=== PATIENT | female | born 2000 | race Caucasian/White ===

== ENCOUNTER 2022-06-17 07:34 | Inpatient (IN) | payer OTHER ==
[2022-06-17] MEDS ORDERED: LIDOCAINE 0.5% (PF) 5 MG/ML (50 ML SDV) SQ PRN (08:01)
[2022-06-17] MEDS ORDERED: TERBUTALINE 1 MG/ML VIAL SQ PRN (08:01)
[2022-06-17] MEDS ORDERED: METHYLERGONOVINE 0.2 MG/ML 1 ML AMP IM PRN (08:01)
[2022-06-17] MEDS ORDERED: OXYTOCIN 10 UNIT/ML 1 ML VIAL IM PRN (08:01)
[2022-06-17] MEDS ORDERED: CARBOPROST TROMETHAMINE 250 MCG/ML 1 ML AMP IM PRN (08:01)
[2022-06-17] MEDS ORDERED: BUTORPHANOL 1 MG/ML 1 ML VIAL IV PRN (08:04)
[2022-06-17] MEDS ORDERED: OXYTOCIN 30 UNITS/500 ML NS 30 UNIT in SALINE 1 500ML.BAG IV SCH (08:15)
--- NOTE | 2022-06-17 08:18 | P.HPOB ---
History of Present Illness H&P Date: 06/17/22 Chief Complaint: Spontaneous rupture of membranes 22-year-old presents at 38 weeks and 1 day with spontaneous rupture membranes around 7 AM today. Her cervix is 1 cm dilated 70% effaced, -2 station. She is dane every 2-5 minutes. heart tones are 135 with moderate variability and reactive. Review of Systems All systems: negative Constitutional: Denies chills, Denies fever Eyes: denies blurred vision, denies pain Ears, nose, mouth and throat: Denies headache, Denies sore throat Cardiovascular: Denies chest pain, Denies shortness of breath Respiratory: Denies cough Gastrointestinal: Denies abdominal pain, Denies diarrhea, Denies nausea, Denies vomiting Genitourinary: Denies dysuria, Denies hematuria Musculoskeletal: Denies myalgias Integumentary: Denies pruritus, Denies rash Neurological: Denies numbness, Denies weakness Psychiatric: Denies anxiety, Denies depression Endocrine: Denies fatigue, Denies weight change Past Medical History Past Medical History: No Reported History Past Surgical History: No Surgical Hx Reported Past Anesthesia/Blood Transfusion Reactions: No Reported Reaction Past Psychological History: No Psychological Hx Reported Past Alcohol Use History: None Reported Past Drug Use History: None Reported Medications and Allergies Home Medications Medication Instructions Recorded Confirmed Type Vit No.179/Iron/Folic 1 tab PO DAILY 06/17/22 06/17/22 History [ Tablet] Allergies Allergy/AdvReac Type Severity Reaction Status Date / Time No Known Allergies Allergy Verified 06/17/22 07:57 Exam Osteopathic Statement: *. No significant issues noted on an osteopathic structural exam other than those noted in the History and Physical/Consult. Intake and Output 06/16/22 06/17/22 06/17/22 22:59 06:59 14:59 Other: Weight 78.925 kg Heart: Regular rate and rhythm Lungs: Clear to auscultation bilaterally Abdomen: Soft, nontender Extremities: Negative Homans sign Assessment and Plan (1) Spontaneous rupture of membranes Current Visit: Yes Status: Acute Code(s): CAR3927 - SNOMED Code(s): 170168743 (2) 38 weeks gestation of Current Visit: Yes Status: Acute Code(s): Z3A.38 - 38 WEEKS GESTATION OF SNOMED Code(s): 92650440 Plan: 1. Admit to family place 2. Expectant management 3. Anticipate normal vaginal delivery
[2022-06-17] MEDS: LACTATED RINGERS 1,000 ML IV SCH ×3 (08:30→17:08)
[2022-06-17 09:20] LABS: Basophils % (A) 0 %; Eosinophils # (A) 0.1 k/uL (0-0.7); Eosinophils % (A) 1 %; HCT 36.6 % (34.0-46.0); HGB 11.7 gm/dL (11.4-16.0); Hypochromasia Moderate; Lymphocytes # (A) 1.8 k/uL (1.0-4.8); Lymphocytes % (A) 22 %; MCH 25.9 pg (25.0-35.0); MCHC 32.1 g/dL (31.0-37.0); MCV 80.6 fL (80.0-100.0); Mean Platelet Volume 10.6; Monocytes # (A) 0.4 k/uL (0-1.0); Monocytes % (A) 5 %; Neutrophils # (A) 5.9 k/uL (1.3-7.7); Neutrophils % (A) 70 %; Platelet Count 162 k/uL (150-450); RBC 4.54 m/uL (3.80-5.40); RDW 14.5 % (11.5-15.5); WBC 8.4 k/uL (4.0-11.0)
[2022-06-17] MEDS ORDERED: ROPIVACAINE 100 MG, fentaNYL (PF). 200 MCG in SODIUM CHLORIDE 0.9% 76 ML EPIDURAL ONE (17:40)
--- NOTE | 2022-06-17 19:24 | P.PROBDLV ---
Vaginal Delivery Note - . Vaginal Delivery Note: The patient progressed to complete dilation after oxytocin augmentation of labor and epidural anesthesia. Once reaching complete, she began pushing. She pushed for approximately 1 hour and head came to a crown. With one further push, the 's head delivered across the perineum. She was encouraged to continue pushing and the anterior shoulder did deliver. Nuchal cord times one was noted. Nose and mouth were bulb suctioned. With one remaining push, the remainder the easily delivered with the nuchal cord times one reduced around the body with delivery. was placed on mother's abdomen and nose and mouth were bulb suctioned. Cord was clamped and cut and was taken to warmer for evaluation. A viable female infant is noted with scores of 9 at 1 minute and 9 at 5 minutes and infant weight of 6 pounds 13.5 ounces. Placenta delivered shortly thereafter, intact, with a three-vessel cord. Uterus contracted fairly well after oxytocin was given and uterine massage was carried out. Inspection of the perineum revealed no perineal lacerations. Estimated blood loss is approximately 100 mL's. Both mother and infant are in stable condition.
[2022-06-17] MEDS ORDERED: diphenhydrAMINE 25 MG CAP PO PRN (19:51)
[2022-06-17] MEDS ORDERED: BENZOCAINE/MENTHOL SPRAY 1 GM/SPRAY AEROSOL TOPICAL PRN (19:51)
[2022-06-17] MEDS ORDERED: IBUPROFEN 600 MG TAB PO PRN (19:51)
[2022-06-17] MEDS ORDERED: HYDROCORTISONE 2.5% RECTAL CREAM 30 GM TUBE RECTAL PRN (19:51)
[2022-06-17] MEDS ORDERED: ACETAMINOPHEN TAB 325 MG TAB PO PRN (19:51)
[2022-06-17] MEDS ORDERED: LANOLIN CREAM 5 GM TUBE TOPICAL PRN (19:51)
[2022-06-17] MEDS ORDERED: ZOLPIDEM 5 MG TAB PO PRN (19:51)
[2022-06-17] MEDS ORDERED: diphenhydrAMINE 50 MG CAP PO PRN (19:51)
[2022-06-17] MEDS ORDERED: SIMETHICONE 80 MG CHEWABLE PO PRN (19:51)
[2022-06-17] MEDS: SENNOSIDES-DOCUSATE SODIUM 1 EACH TAB PO SCH (23:38)
[2022-06-18 07:30] LABS: Basophils % (A) 0 %; Eosinophils % (A) 0 %; HCT 32.6 % (34.0-46.0); HGB 10.3 gm/dL (11.4-16.0); Hypochromasia Slight; Lymphocytes # (A) 1.8 k/uL (1.0-4.8); Lymphocytes % (A) 15 %; MCH 25.2 pg (25.0-35.0); MCHC 31.7 g/dL (31.0-37.0); MCV 79.6 fL (80.0-100.0); Mean Platelet Volume 10.8; Monocytes # (A) 0.8 k/uL (0-1.0); Monocytes % (A) 6 %; Neutrophils # (A) 9.4 k/uL (1.3-7.7); Neutrophils % (A) 77 %; Platelet Count 148 k/uL (150-450); RBC 4.09 m/uL (3.80-5.40); RDW 14.5 % (11.5-15.5); WBC 12.2 k/uL (4.0-11.0)
[2022-06-18] MEDS: SENNOSIDES-DOCUSATE SODIUM 1 EACH TAB PO SCH (08:19)
--- NOTE | 2022-06-18 08:24 | P.DS ---
Providers Date of admission: 06/17/22 07:56 Expected date of discharge: 06/18/22 Attending physician: Felicia Spencer Primary care physician: Stated None - Discharge Diagnosis(es) (1) Spontaneous rupture of membranes Current Visit: Yes Status: Resolved (2) 38 weeks gestation of Current Visit: Yes Status: Resolved (3) Normal vaginal delivery Current Visit: Yes Status: Acute Hospital Course: Patient presented with spontaneous rupture membranes. She had Pitocin augmentation and an epidural. She underwent a normal vaginal delivery. course was uncomplicated. She denies nausea, vomiting, chest pain, shortness of breath or any calf pain. Patient would be discharged home day #1 in stable condition to follow-up with me in 6 weeks. Plan - Discharge Summary New Discharge Prescriptions: New Ibuprofen [Motrin] 600 mg PO Q6HR PRN #30 tab PRN Reason: Mild Pain (Scale 1 To 3) No Action Vit No.179/Iron/Folic [ Tablet] 1 tab PO DAILY Discharge Medication List Vit No.179/Iron/Folic [ Tablet] 1 tab PO DAILY 06/17/22 [History] Ibuprofen [Motrin] 600 mg PO Q6HR PRN #30 tab 06/18/22 [Rx] Follow up Appointment(s)/Referral(s): Felicia Spencer DO [Doctor of Osteopathic Medicine] - 07/28/22 11:15 am Discharge Disposition: HOME SELF-CARE
[2022-06-18 08:27] VITALS: RESP 16; TEMP 98.3
--- NOTE | 2022-06-18 13:07 | P.MSEPDOC ---
Presenting Problems - Arrival Data Date of Arrival on Unit: 06/17/22 Time of Arrival on Unit: 08:06 Mode of Transport: Ambulatory - Complaint OB-Reason for Admission/Chief Complaint: Rule Out SROM Medical History - Information : 1 Para: 0 Term: 0 : 0 Abortions: Spontaneous or Elective: 0 Number of Living Children: 0 - Gestational Age Gestational Age by KAREEN (wks/days): 38 Weeks and 1 Days Review of Systems - Review of Systems Constitutional: No problems Breast: No problems ENT: No problems Cardiovascular: No problems Respiratory: No problems Gastrointestinal: No problems Genitourinary: No problems Musculoskeletal: No problems Neurological: No problems Skin: No problems Vital Signs - Temperature Temperature: 98.3 F Temperature Source: Oral - Pulse Right Sitting Pulse Rate: 85 Pulse Assessment Method: Automatic Cuff - Respirations Respiratory Rate: 16 Oxygen Delivery Method: Room Air - Blood Pressure Right Arm Blood Pressure: 105/76 Blood Pressure Mean: 85 Blood Pressure Source: Automatic Cuff Medical Screen Scoring - Cervical Exam Dilation (cm): 1 Effacement (%): 70 Station: -2 Membranes: Ruptured - Uterine Contractions Frequency From (mins): 2 Frequency To (mins): 4 Duration From (seconds): 40 Duration To (seconds): 60 Intensity: Mild Resting: Soft to palpation - Assessment - Baby A Baseline FHR: 125 Heart Rate - NICHD Category: Category I (Normal) NST: Reactive Physician Notification - Physician Notified Physician Notified Date: 06/17/22 Physician Notified Time: 08:06 Physician: Felicia Spencer Order Received: Yes (admit) Maternal Triage Index - Non-Urgent/Priority 4 Non-Urgent Priority 4: Yes Criteria Met for Priority 4: positive amnisure, dilated 1cm/70%, reactive nst Disposition - Disposition OB Disposition: Admit, LDRP Suite I agree with the RN Medical Screening Exam: Yes Case reviewed; plan agreed upon as documented in EMR&OBIX.: Yes Diagnosis: ENCOUNTER FOR FULL-TERM UNCOMPLICATED DELIVERY
[2022-06-18 16:46] VITALS: BP 115/70; PULSE 92
== END 2022-06-18 20:35 | disposition home or self-care (01) | DRG 807 ==
LOC: FBPOP 07:34 → 4FBP 07:56
PROVIDERS: ADMIT Obstetrics & Gynecology; ATTEND Obstetrics & Gynecology
PROC: 10E0XZZ Delivery of Products of Conception, External Approach (ICD-10-PCS; principal; 2022-06-17)
PROC: 4A0HXCZ Measurement of Products of Conception, Cardiac Rate, External Approach (ICD-10-PCS; 2022-06-17)
PROC: 3E033VJ Introduction of Other Hormone into Peripheral Vein, Percutaneous Approach (ICD-10-PCS; 2022-06-17)
DX: O42.92 Full-term premature rupture of membranes, unspecified as to length of time between rupture and onset of labor (principal); O69.81X0 Labor and delivery complicated by cord around neck, without compression, not applicable or unspecified; Z37.0 Single live birth; Z3A.38 38 weeks gestation of pregnancy
CPT/HCPCS: 59025; 84112; 85025; 86850; 86900; 86901; 99213

== ENCOUNTER 2023-05-06 18:17 | Emergency (ER) | payer OTHER ==
--- NOTE | 2023-05-06 19:41 | ED ---
Chest Pain HPI - General Source: patient Mode of arrival: ambulatory Limitations: no limitations <Jared Sky - Last Filed: 05/06/23 19:41> <Jennifer Darling - Last Filed: 05/07/23 00:41> - General Chief Complaint: Chest Pain Stated Complaint: Referred here,Dizziness,Tachycradia,Dyspena - History of Present Illness Initial Comments: 23-year-old female presenting to the ED with chief complaint chest pain. Patient states yesterday while at work started to experience pain of her left upper abdomen. Today started to experience pain and tightness around her chest and feels like her heart is pounding fast. Denies shortness of breath (Jared Sky) 23-year-old female presenting with chief complaint of upper abdominal pain which radiates into the chest. Patient states that she had an episode of chest pain yesterday, pain was mainly in the right upper quadrant. Today she had diffuse upper abdominal pain which radiated into the chest. She states that for a brief moment she felt like her heart was racing and she had some difficulty breathing. This has since completely resolved and the patient is currently asymptomatic. She admits to low-grade fever which started yesterday. No vomiting, diarrhea, hematochezia, melena, lower extremity swelling, recent surgery or travel (Jennifer Darling) - Related Data Home Medications Medication Instructions Recorded Confirmed No Known Home Medications 05/06/23 05/06/23 Allergies Allergy/AdvReac Type Severity Reaction Status Date / Time No Known Allergies Allergy Verified 05/06/23 22:34 Review of Systems ROS Other: All systems not noted in ROS Statement are negative. <Jared Sky - Last Filed: 05/06/23 19:41> ROS Other: All systems not noted in ROS Statement are negative. <Jennifer Darling - Last Filed: 05/07/23 00:41> ROS Statement: Those systems with pertinent positive or pertinent negative responses have been documented in the HPI. EKG Findings - EKG Comments: EKG Findings:: Sinus tachycardia ventricular rate 105. MA interval 126. QRS 86. QT 311. QTC 372. No ST deviation. Left axis deviation. <Jennifer Darling - Last Filed: 05/07/23 00:41> Past Medical History Past Medical History: No Reported History History of Any Multi-Drug Resistant Organisms: None Reported Past Surgical History: No Surgical Hx Reported Past Anesthesia/Blood Transfusion Reactions: No Reported Reaction Past Psychological History: No Psychological Hx Reported Smoking Status: Former smoker Past Alcohol Use History: None Reported Past Drug Use History: None Reported - Past Family History Mother Family Medical History: Diabetes Mellitus, Thyroid Disorder Father Additional Family Medical History / Comment(s): multiple sclerosis <Jared Sky - Last Filed: 05/06/23 19:41> General Exam Limitations: no limitations General appearance: alert, in no apparent distress Respiratory exam: Present: normal lung sounds bilaterally Cardiovascular Exam: Present: normal rhythm, tachycardia Neurological exam: Present: alert, oriented X3 <Tyree Skyua - Last Filed: 05/06/23 19:41> Limitations: no limitations General appearance: alert, in no apparent distress Head exam: Present: atraumatic, normocephalic, normal inspection Eye exam: Present: normal appearance Neck exam: Present: normal inspection, full ROM Respiratory exam: Present: normal lung sounds bilaterally. Absent: respiratory distress, wheezes, rales, rhonchi, stridor Cardiovascular Exam: Present: regular rate, normal rhythm, normal heart sounds. Absent: systolic murmur, diastolic murmur, rubs, gallop, clicks GI/Abdominal exam: Present: soft. Absent: distended, tenderness, guarding, rebound, rigid Neurological exam: Present: alert, oriented X3, CN II-XII intact Psychiatric exam: Present: normal affect, normal mood Skin exam: Present: warm, dry, intact, normal color. Absent: rash <Jennifer Darling - Last Filed: 05/07/23 00:41> Course Vital Signs 05/06/23 05/06/23 19:24 23:23 Temperature 100.4 F H 98.9 F Pulse Rate 122 H 101 H Respiratory 20 18 Rate Blood Pressure 108/68 117/83 O2 Sat by Pulse 98 97 Oximetry Chest Pain MDM <Jennifer Darling - Last Filed: 05/07/23 00:41> - MDM Was pt. sent in by a medical professional or institution (, PA, MOVEMAN, urgent care, hospital, or halfway...) When possible be specific @ -No Did you speak to anyone other than the patient for history (EMS, parent, family, police, friend...)? What history was obtained from this source @ -No Did you review nursing and triage notes (agree or disagree)? Why? @ -I reviewed and agree with nursing and triage notes Were old charts reviewed (outside hosp., previous admission, EMS record, old EKG, old radiological studies, urgent care reports/EKG's, halfway records)? Report findings @ -No old charts were reviewed Differential Diagnosis (chest pain, altered mental status, abdominal pain women, abdominal pain men, vaginal bleeding, weakness, fever, dyspnea, syncope, headache, dizziness, GI bleed, back pain, seizure, CVA, palpatations, mental health, musculoskeletal)? @ -MDM Differential Abdominal Pain Women: Appendicitis, Cholecystitis, diverticulosis, ischemic bowel, pancreatitis, he patitis, UTI, gastroenteritis, AAA, incarcerated hernia, bowel obstruction, constipation, inflammatory bowel, hepatitis, peptic ulcer disease, splenic infarction, perforated viscus, vulvitis, ovarian torsion, PID, kidney stone, placenta abruption... This is not meant to be an all-inclusive list EKG interpreted by me (3pts min.). @ -As above X-rays interpreted by me (1pt min.). @ -Chest X-ray shows no acute process CT interpreted by me (1pt min.). @ -None done U/S interpreted by me (1pt. min.). @ -Ultrasound shows possible minimal sludge within the gallbladder the gallbladder is otherwise unremarkable. Common bile duct is normal in caliber. No hydronephrosis of the right kidney. What testing was considered but not performed or refused? (CT, X-rays, U/S, labs)? Why? @ -None What meds were considered but not given or refused? Why? @ -None Did you discuss the management of the patient with other professionals (professionals i.e. Dr., PA, MOVEMAN, lab, RT, psych nurse, social work case manager, ring making machine operator, teacher, grants officer, bottle caser)? Give summary @ -No Was smoking cessation discussed for >3mins.? @ -No Was critical care preformed (if so, how long)? @ -No Were there social determinants of health that impacted care today? How? (Homel essness, low income, unemployed, alcoholism, drug addiction, transportation, low edu. Level, literacy, decrease access to med. care, correction, rehab)? @ -No Was there de-escalation of care discussed even if they declined (Discuss DNR or withdrawal of care, Hospice)? DNR status @ -No What co-morbidities impacted this encounter? (DM, HTN, Smoking, COPD, CAD, Cancer, CVA, ARF, Chemo, Hep., AIDS, mental health diagnosis, sleep apnea, morbid obesity)? @ -None Was patient admitted / discharged? Hospital course, mention meds given and route, prescriptions, significant lab abnormalities, going to OR and other pertinent info. @ -23-year-old female presenting with chief complaint of upper abdominal pain which radiated into the chest. Patient is currently asymptomatic. Physical examination is unremarkable. Lab work is grossly negative. Chest x-ray shows no acute process and ultrasound shows possible minimal sludge in the gallbladder and otherwise no acute process. EKG showed no acute findings, sinus tachycardia. On reassessment patient continues to rest comfortably, she remains asymptomatic. Patient is educated on today's findings on supportive management at home. Follow-up with PCP. Report back to ER with any new or worsening symptoms. Discussed return parameters and answered all questions. Patient conveyed verbal understanding and agreed to the plan. I discussed this case in detail with my attending Dr. Simmons Undiagnosed new problem with uncertain prognosis? @ -No Drug Therapy requiring intensive monitoring for toxicity (Heparin, Nitro, Insulin, Cardizem)? @ -No Were any procedures done? @ -No Diagnosis/symptom? @ -fever, sinus tachycardia Acute, or Chronic, or Acute on Chronic? @ -Acute Uncomplicated (without systemic symptoms) or Complicated (systemic symptoms)? @ -Uncomplicated Side effects of treatment? @ -No Exacerbation, Progression, or Severe Exacerbation? @ -No Poses a threat to life or bodily function? How? (Chest pain, [place], [place], pneumonia, PE, COPD, DKA, ARF, appy, cholecystitis, CVA, Diverticulitis, Homicidal, Suicidal, threat to staff... and all critical care pts) @ -Low likelihood (Jennifer Darling) Disposition <Jared Sky - Last Filed: 05/06/23 19:41> Is patient prescribed a controlled substance at d/c from ED?: No Time of Disposition: 23:32 <Jennifer Darling - Last Filed: 05/07/23 00:41> Clinical Impression: Sinus tachycardia Disposition: HOME SELF-CARE Condition: Good Instructions (If sedation given, give patient instructions): Abdominal Pain (ED), Tachycardia (ED) Additional Instructions: Follow-up with PCP. Report back to ER with any new or worsening symptoms. Referrals: None,Stated [Primary Care Provider] - 1-2 days [facility] [NON-STAFF] - 1-2 days
[2023-05-06 20:42] LABS: Basophils % (A) 0 %; Eosinophils # (A) 0.1 k/uL (0-0.7); Eosinophils % (A) 1 %; HCT 34.9 % (34.0-46.0); HGB 11.6 gm/dL (11.4-16.0); Lymphocytes # (A) 0.8 k/uL (1.0-4.8); Lymphocytes % (A) 13 %; MCHC 33.3 g/dL (31.0-37.0); MCV 83.9 fL (80.0-100.0); Mean Platelet Volume 8.8; Monocytes # (A) 0.4 k/uL (0-1.0); Monocytes % (A) 6 %; Neutrophils # (A) 4.6 k/uL (1.3-7.7); Neutrophils % (A) 79 %; Platelet Count 139 k/uL (150-450); RBC 4.16 m/uL (3.80-5.40); RDW 13.7 % (11.5-15.5); WBC 5.9 k/uL (3.8-10.6)
[2023-05-06 20:58] LABS: ALT 17 U/L (4-34); AST 21 U/L (14-36); African American GFR (CKD) >90 (>60 ml/min/1.73 sqM); Albumin 4.3 g/dL (3.5-5.0); Alkaline Phosphatase 113 U/L (38-126); Anion Gap 10 mmol/L; Blood Urea Nitrogen 10 mg/dL (7-17); Calcium 8.8 mg/dL (8.4-10.2); Carbon Dioxide 22 mmol/L (22-30); Chloride 104 mmol/L (98-107); Glucose 121 mg/dL (74-99); Magnesium 1.7 mg/dL (1.6-2.3); Non-African American GFR(CKD) >90 (>60 ml/min/1.73 sqM); Potassium 3.7 mmol/L (3.5-5.1); Sodium 136 mmol/L (137-145); Total Bilirubin 0.4 mg/dL (0.2-1.3); Total Protein 7.1 g/dL (6.3-8.2)
[2023-05-06 21:00] LABS: INR 0.9 (<1.2); Partial Thromboplastin Time 24.2 sec (22.0-30.0); Prothrombin Time 10.1 sec (9.0-12.0)
[2023-05-06] MEDS ORDERED: ACETAMINOPHEN TAB 500 MG TAB PO STA (22:08)
--- NOTE | 2023-05-06 23:02 | XR ---
EXAM: XR Chest, 2 Views CLINICAL HISTORY: ITS.REASON XR Reason: chest pain TECHNIQUE: Frontal and lateral views of the chest. COMPARISON: No relevant prior studies available. FINDINGS: Lungs: Unremarkable. No consolidation. Pleural space: Unremarkable. No pneumothorax. Heart: Unremarkable. No cardiomegaly. Mediastinum: Unremarkable. Bones/joints: Unremarkable. IMPRESSION: Normal chest x-rays.
--- NOTE | 2023-05-06 23:03 | US ---
EXAM: US Abdomen Complete CLINICAL HISTORY: ITS.REASON US Reason: RUQ pain TECHNIQUE: Real-time ultrasound of the abdomen with image documentation. COMPARISON: No previous studies. FINDINGS: Liver: The liver measures 1.9 cm. No intrahepatic bile duct dilation. Gallbladder: Gallbladder wall measures 0.2 cm. Possible sludge within the gallbladder. Negative ultrasound Nance's sign. No gallstones. Common bile duct: Common bile duct measures 0.17 cm. No stones. No dilation. Pancreas: The pancreas is unremarkable. Kidneys: Right kidney measures 9.4 x 5 x 3.9 cm without hydronephrosis. No stones. Spleen: Unremarkable. No splenomegaly. Aorta: Unremarkable. No abdominal aortic aneurysm. Inferior vena cava: Unremarkable. IMPRESSION: 1. Possible minimal sludge within the gallbladder. 2. The gallbladder is otherwise unremarkable. 3. Common bile duct is normal in caliber. 4. No hydronephrosis of the right kidney.
[2023-05-06 23:24] VITALS: BP 117/83; PULSE 101; RESP 18; TEMP 98.9
== END 2023-05-06 23:55 | disposition home or self-care (01) ==
LOC: EC 18:17
DX: R00.0 Tachycardia, unspecified (principal); R50.9 Fever, unspecified; Z87.891 Personal history of nicotine dependence
CPT/HCPCS: 36415; 71046; 76705; 80053; 83735; 84484; 85025; 85379; 85610; 85730; 87636; 87651; 93005; 99285

== ENCOUNTER → 2024-09-22 | Outpatient (CLI) | payer BC, OTHER ==
--- NOTE | 2024-09-22 08:09 | US ---
EXAMINATION TYPE: US liver DATE OF EXAM: 09/22/2024 COMPARISON: 05/06/23 CLINICAL INDICATION: Female, 24 years old with history of R94.5 ABNORMAL RESULTS OF LIVER FUNCTION; A bnormal LFT's TECHNIQUE: Grayscale and color Doppler imaging of the right upper quadrant was performed. 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 Cirrhotic liver may reflect hepatic steatosis. Correlate clinically. [facility], , 09/22/2024 8:07 AM
== END | disposition home or self-care (01) ==
LOC: RADUSWWP 07:35
PROVIDERS: ATTEND Internal Medicine
DX: K74.60 Unspecified cirrhosis of liver (principal); R94.5 Abnormal results of liver function studies
CPT/HCPCS: 76705